=== PATIENT | female | born 1950 | race Caucasian/White ===

== ENCOUNTER 2016-08-16 20:27 | Emergency (ER) | payer MEDICARE ==
--- NOTE | 2016-08-16 22:00 | ED Physician Chart ---
Chief Complaint/HPI - Patient Information Date Seen:: 08/16/16 Time Seen:: 20:38 Chief Complaint:: back pain History of Present Illness:: THIS IS A 65 YO FEMALE WITH RECURRENT LOWER BACK PAIN THAT RADIATES DOWN THE BACK OF THE RIGHT THIGH. SHE HAS BEEN TREATING IT FOR SEVERAL YEARS. SHE WAS TOLD BY HER DOCTOR THAT SHE NEEDS TO HAVE TREATMENT BY AN ORTHOPEDIC SURGEON. SHE DENIES ANY OLD OR RECENT TRAUMA. HER PAIN IS 9/10 RADIATING DOWN THE BACK OF HER THIGH. Allergies:: Allergies Allergy/AdvReac Type Severity Reaction Status Date / Time No Known Allergies Allergy Verified 08/16/16 20:49 Vitals:: Vital Signs - 8 hr 08/16/16 20:30 Temp 97.8 F HR 71 RR 18 BP 144/79 O2 Sat % 97 Historian:: Patient Review:: Nurse's Note Reviewed Review of Systems - Review of Systems General/Constitutional: No fever, No chills, No weight loss, No weakness, No diaphoresis, No edema, No loss of appetite Skin: No skin lesions, No rash, No bruising Head: No headache, No light-headedness Eyes: No loss of vision, No pain, No diplopia ENT: No earache, No nasal drainage, No sore throat, No tinnitus Neck: No neck pain, No swelling, No thyromegaly, No stiffness, No mass noted Cardio Vascular: No chest pain, No palpitations, No PND, No orthopnea, No edema Pulmonary: No SOB, No cough, No sputum, No wheezing GI: No nausea, No vomiting, No diarrhea, No pain, No melena, No hematochezia, No constipation, No hematemesis G/U: No dysuria, No frequency, No hematuria Musculoskeletal: No bone or joint pain, Back pain, No muscle pain Endocrine: No polyuria, No polydipsia Psychiatric: No prior psych history, No depression, No anxiety, No suicidal ideation Hematopoietic: No bruising, No lymphadenopathy Allergic/Immuno: No urticaria, No angioedema Neurological: No syncope, No focal symptoms, No weakness, No paresthesia, No headache, No seizure, No dizziness, No confusion, No vertigo Past Medical History - Past Medical History Obtainable: Yes Past Medical History: HTN, Other (OBESE) Family History: None Social History: Non Smoker, No Alcohol, No Drug Use Surgical History: Hernia, other (CARPLE TUNNEL SYNDROME SURGERY.) Psychiatricy History: None Medication: Reviewed Family Medical History - Family Member Mother History Unknown: Yes Physical Exam - Physical Examination General/Constitutional: Awake, Well-developed, well-nourished, Alert, No distress, GCS 15, Non-toxic appearing, Ambulatory Other Gen/Cons comments:: OBSE Head: Atraumatic Eyes: Lids, conjuctiva normal, PERRL, EOMI Skin: Nl inspection, No rash, No skin lesions, No ecchymosis, Well hydrated, No lymphadenopathy ENMT: External ears, nose nl, Nasal exam nl, Lips, teeth, gums nl Neck: Nontender, Full ROM w/o pain, No JVD, No nuchal rigidity, No bruit, No mass, No stridor Respiratory: Nl effort/Exclusion, Clear to Auscultation, No Wheeze/Rhonchi/Rales Cardio Vascular: RRR, No murmur, gallop, rubs, NL S1 S2 GI: No tenderness/rebounding/guarding, No organomegaly, No hernia, Normal BS's, Nondistended, No mass/bruits, No McBurney tenderness : No CVA tenderness Extremities: No tenderness or effusion, Full ROM, normal strength in all extremities, No edema, Normal digits & nails Neuro/Psych: Alert/oriented, DTR's symmetric, Normal sensory exam, Normal motor strength, Judgement/insight normal, Mood normal, Normal gait, No focal deficits Misc: No paraspinal tenderness Other Misc comments:: THERE IS TENDERNESS ON THE RIGHT SIDE AT THE L4 TO S1 LEVEL OF THE SPINE AREA. THE ROM IS LIMITED BECAUSE OF PAIN. Labs/Radiology/EKG Results - Radiology Results Results: CT SCAN OF THE LOWER SPINE = SPINAL STENOSIS ED Septic Shock - . Is Septic Shock (SBP<90, OR Lactate>4 mmol\L) present?: No - <6hrs of presentation: Vital Signs: Vital Signs - 8 hr 08/16/16 20:30 Temp 97.8 F HR 71 RR 18 BP 144/79 O2 Sat % 97 Reassessment (Disposition) - Reassessment Reassessment Condition:: Improved - Diagnosis Diagnosis:: SPINAL STENOSIS OF THE LUMBO SACRAL SPINE. - Aftercare/Follow up Instructions Aftercare/Follow-Up Instructions:: Counseled pt regarding lab results/diagnosis & need follow up, Refer to Discharge Instructions, Counseled pt & family regarding lab results/diagnosis & need follow up - Patient Disposition Discharge/Transfer:: Home Condition at Disposition:: Improved ED Discharge Plan - Patient Disposition Admit/Discharge/Transfer: PT DISCHARGED HOME Condition at Disposition: Improved Instructions: Spinal Stenosis
[2016-08-16] MEDS ORDERED: HYDROmorphone 1 mg/mL 1mL Syr IM STA (22:01)
[2016-08-16] MEDS ORDERED: HYDROmorphone 1 mg/mL 1mL Syr ONE (22:10)
[2016-08-16 22:22] LABS: % BASOPHILS 0.3 % (0.0-2.0); % EOSINOPHILS 1.9 % (0.0-5.0); % LYMPHOCYTES 28.9 % (20.0-50.0); % MONOCYTES 8.8 % (2.0-10.0); % NEUTROPHILS 60.1 % (40.0-80.0); HEMATOCRIT 41.4 % (35.0-45.0); MEAN CELL VOLUME 86.7 fl (81-100); MEAN CORPUSCULAR HEMOGLOBIN 29.3 pg (27.0-31.0); MEAN CORPUSCULAR HGB CONC 33.8 pg (28.0-36.0); MEAN PLATELET VOLUME 8.1 fl; NEUTROPHILE ABSOLUTE 3.9 Th/cmm (1.8-8.0); PLATELET COUNT 235 Th/cmm (150-400); RED BLOOD COUNT 4.78 Mil/cmm (3.80-5.20); RED CELL DISTRIBUTION WIDTH 13.3 % (11.5-20.0); WHITE BLOOD COUNT 6.5 Th/cmm (4.8-10.8)
[2016-08-16 22:34] LABS: INR 0.95 (0.5-1.4); PROTHROMBIN TIME (TEST) 9.9 SECONDS (9.5-11.5)
[2016-08-16 22:39] LABS: ALB/GLOB RATIO 1.3 (1.0-1.8); ALKALINE PHOSPHATASE 70 U/L (34-104); ANION GAP 13.4 (7.0-16.0); BILIRUBIN,TOTAL 0.6 mg/dL (0.3-1.0); BUN - UREA NITROGEN 25 mg/dL (7-25); BUN/CREATININE RATIO 31.3; CARBON DIOXIDE 23.6 mEq/L (21.0-31.0); CHLORIDE 110 mEq/L (98-107); CHOLESTEROL 153 mg/dL (<200); CREATININE - SERUM 0.8 mg/dL (0.6-1.2); GLUCOSE 103 mg/dL (70-105); SGOT 52 U/L (13-39); SGPT/ALT 82 U/L (7-52); SODIUM SERUM 143 mEq/L (136-145); TRIGLYCERIDES 76 mg/dL (<150)
--- NOTE | 2016-08-17 10:46 | Diagnostic Imaging Report ---
CT scan lumbar spine HISTORY: Pain Total DLP equals 1510 CTDI equals 78.0 Axial sections were obtained through the lumbar spine. Additional sagittal and coronal reformatted images are provided. There are diffuse degenerative changes with hypertrophic spur formation noted about the endplates of all vertebrae. Air is noted within the interspaces at L2-3, L4-5, and L5-S1 reflecting degenerative disc disease. There is mild spondylolisthesis of L3 on L4. This appears to be related to hypertrophic changes about the facet joints. Bony changes results in a moderate to severe degree of spinal stenosis at this level. Additional hypertrophic changes with mild spondylolisthesis noted at L4-5. Again, findings are associated with severe hypertrophic changes about the facet joints. A relatively severe degree of spinal stenosis. No acute abnormality is. No fractures. Anterior wedging involves the body of T11. Additional degenerative changes seen in the visualized lower thoracic spine. IMPRESSION: 1. No acute abnormalities 2. Diffuse degenerative changes along with spondylolisthesis of L3 on L4 and L4 on L5. Findings are related to severe hypertrophic changes about the facet joints to create relatively severe spinal stenosis at L4-5 and to a lesser degree L3-4.
== END 2016-08-16 22:28 | disposition home or self-care (01) ==
LOC: ER 20:27
DX: M48.07 Spinal stenosis, lumbosacral region (principal); I10 Essential (primary) hypertension
CPT/HCPCS: 36415-UA; 72131-TC; 80053-TC; 80061-TC; 84443-TC; 84484-TC; 85025-TC; 85610-TC; J1170; J1885; J2405; J2930